=== PATIENT | female | born 1955 | race Caucasian/White ===

== ENCOUNTER 2023-10-08 09:44 | Emergency (ER) | payer OTHER, SELFPAY ==
[2023-10-08 09:45] VITALS: BP 173/53; PULSE 66; RESP 16; TEMP 36; O2SAT 97; BMI 29.7
--- NOTE | 2023-10-08 10:02 | RAD_ITS ---
STUDY: X-RAY - PELVIS REASON FOR EXAM: Female, 67 years old. Post op pain TECHNIQUE: One view of the pelvis was obtained. COMPARISON: None. FINDINGS: Moderate amount of fecal material is seen in the colon. There are multiple calcified phleboliths. Normal bilateral iliac wings, sacroiliac joints and visualized sacrum. Normal visualized bilateral superior and inferior pubic rami. Normal pubic symphysis. Normal ischial tuberosities. Normal visualized right femoral head. Normal right acetabulum. Normal right hip joint. The patient is status post left total hip replacement. RAD/Pelvis 1 or 2 Views IMPRESSION: Status post right total hip replacement. There is good alignment. Electronically Signed: Tian Augustine MD at 10:36 EST ,
--- NOTE | 2023-10-08 10:02 | RAD_ITS ---
STUDY: X-RAY - LEFT FEMUR REASON FOR STUDY: Female, 67 years old. Left lower extremity pain. Recent total hip replacement. TECHNIQUE: 4 view(s) of the femur. COMPARISON: None. FINDINGS: Patient is status post left total hip replacement. There is good alignment. Normal visualized soft tissue structure. RAD/Femur Min 2 Views IMPRESSION: Status post left total hip replacement. Electronically Signed: Tian Augustine MD at 10:35 EST ,
--- NOTE | 2023-10-08 10:02 | VDLE_ITS ---
Reason For Study: Pain LLE RIGHT LEFT CFV is compressible, spontaneous, phasic, GSV is normal. competent and demonstrates normal CFV is compressible, spontaneous, phasic, augmentation. competent, and demonstrates normal Procedure augmentation. This is a venous duplex using B-mode, color FV is compressible, spontaneous, phasic, flow and spectral Doppler. competent and demonstrates normal Exam performed portable in ED. augmentation. A preliminary report was called and/or faxed POP V is compressible, spontaneous, phasic, to Dr. Palmer. competent and demonstrates normal augmentation. T/P Trunk is compressible. PTV is compressible. LT PerV is compressible. VL/Venous Duplex US, Unilateral Interpretation Summary There is no evidence of left lower extremity deep vein thrombosis. Left great s aphenous vein appears patent and compressible segmentally. Normal flow patterns right common femoral vein Ordering Physician: Luis Carlos Palmer Performed By: Emerald Castrejon, TETE, RVT
--- NOTE | 2023-10-08 10:03 | EX.ED.DYSGE1 ---
HPI History of Present Illness Chief Complaint: Other, Pain/Inj Detail of Chief Complaint: Left hip pain Informant: patient Narrative Narrative: Patient presents to the emergency department with complaint of left hip pain. Patient states that she was walking with her walker yesterday when she felt a pop in her left hip and started having a difficult time bearing weight. Patient states that she had a hip replacement with Dr. Francisco 4 days ago. Patient also noticed some swelling to her left knee. Denies chest pain or shortness of breath. Patient states she called Dr. Francisco's office yesterday and she was told to come in and get evaluated and get an x-ray. Denies any fevers or chills or sweats. PFSH PFSH Allergy/AdvReac Type Severity Reaction Status Date / Time No Known Allergies Allergy Verified 10/08/23 11:45 Social History Smoking Status: Never smoker ROS ROS ED Review of Systems ROS Unobtainable: other Constitutional Constitutional ED: Reports lethargy; Denies chills, fever(s), sweats or weight loss Eyes Eyes: Denies blurry vision, change in vision or diplopia ENT ENT ED: Denies rhinorrhea or sore throat Cardiovascular Cardiovascular: Denies chest pain, orthopnea or racing heartbeat Respiratory/Chest Respiratory/Chest: Denies cough, dyspnea, dyspnea on exertion, orthopnea or sputum Gastrointestinal Gastrointestinal: Denies abdominal pain, diarrhea, nausea or vomiting Genitourinary Genitourinary ED: Denies dysuria, hematuria or urinary frequency Musculoskeletal Musculoskeletal: Reports other Details: Left hip pain, left knee swelling ; Denies arthralgias, back pain, myalgias or neck pain Integumentary Denies abscess, Abrasions or rash Neurologic Neurologic: Denies headache(s) or weakness Psychiatric Psychiatric: Denies anxiety, depression or suicidal thoughts Endocrine Endocrinology: Denies polydipsia, polyphagia or polyuria Hematologic/Lymphatic Hematologic/Lymphatic: Denies easy bleeding, easy bruising or lymphadenopathy Allergic/Immunologic Allergic/Immunologic ED: Denies mouth swelling, tongue swelling or urticaria EXAM Physical Exam Const Vital Signs: 10/08/23 09:45 Temperature 96.8 F L Temperature Source Temporal Pulse Rate 66 Respiratory Rate 16 Blood Pressure 173/53 H Blood Pressure Mean 93 Pulse Ox 97 Oxygen Delivery Method Room Air Positive well nourished and well developed General Appearance ED: well developed and NAD HEENT Reports TM's clear and moist mucous membranes normocephalic and atraumatic; Negative for trauma or tenderness Tympanic Membrane ED: Yes TM's clear Eyes PERRL and EOMs intact bilaterally General Eye ED: Negative for pale conjunctiva or scleral icterus Neck no lymphadenopathy, supple and no JVD General: Negative for tenderness Chest Wall inspection of chest normal and palpation of chest normal Chest: Negative for tenderness Resp normal respiratory effort and clear to auscultation bilaterally Effort and Inspection: Negative for respiratory distress or pain with movement Auscultation: Negative for rhonchi, wheezes or diminished lung sounds Cardio regular rate, regular rhythm, S1 normal heart sound, S2 normal heart sound and no murmurs Peripheral Pulses: pulses 2+ throughout GI normal to inspection, nondistended, normoactive bowel sounds, soft to palpation, non-tender, non-distended and no masses Back/Spine no CVA tenderness and no thoracic nor lumbar tenderness Extremity Extremity Narrative: Left leg-patient has tenderness palpation over the left hip. No shortening of the extremity noted. She does have edema to the left knee. She has some faint erythema to the medial aspect of the left thigh. Neurovascularly intact distally. General Extremety ED: Negative for edema General Extremity: Negative for edema Neuro oriented x3, CN's II-XII intact bilaterally, no sensory deficits noted and gait normal Sensorium / Orientation: awake, alert, oriented to person, oriented to place and oriented to time Motor Exam: strength 5/5 throughout and strength abnormal Psych mental status grossly normal Skin no rashes or lesions noted and no wounds MDM MDM MDM Narrative Medical decision making narrative: Presents with pain to left hip after total left hip replacement. Will obtain x-rays of the left hip and left femur. Will obtain a venous Doppler to rule out DVT. Venous duplex was negative for DVT. Patient had x-rays of the pelvis as well as the left hip and femur which were negative for fracture. I discussed case with Dr. Francisco who recommended patient keep her appointment with him. Clinically I do not see signs of infection. Patient comfortable with plan. Radiography Diagnostic Testing: Clinical Impression(s) from Imaging Studies Femur X-Ray 10/08/23 10:02 IMPRESSION: Status post left total hip replacement. Electronically Signed: Tian Augustine MD at 10:35 EST , Pelvis X-Ray 10/08/23 10:02 IMPRESSION: Status post right total hip replacement. There is good alignment. Electronically Signed: Tian Augustine MD at 10:36 EST , Venous Doppler Study 10/08/23 10:02 Interpretation Summary There is no evidence of left lower extremity deep vein thrombosis. Left great saphenous vein appears patent and compressible segmentally. Normal flow patterns right common femoral vein Ordering Physician: Luis Carlos Palmer Performed By: Emerald Castrejon, TETE, RVT Left hip and femur x-rays obtained views obtained which showed no evidence of fracture or dislocation. Radiology in agreement. 1 view pelvis x-ray obtained interpreted by myself as no evidence of fracture dislocation. Radiology in agreement. Discharge Plan Triage Chief Complaint: Other, Pain/Inj ED Provider: Luis Carlos Palmer Dx/Rx/DC Orders Clinical Impression: Post-op pain, Hip pain, left Instructions: ED Post Op Wound Check, Pain Primary Care Provider: Nancy Gannon NP Referrals: Herbie Francisco MD [Med Staff - Active Staff] - 5-7 Days Nancy Gannon NP, [employer]TE[employer]CE [facility]IST[facility] [Primary Care Provider] - Disposition Disposition: Home, Self Care Discharge Date/Time: 10/08/23 11:48
== END 2023-10-08 11:48 | disposition home or self-care (01) ==
PROVIDERS: Emergency Provider Emergency Medicine; PCP Nurse Practitioner Family; Visit Provider Emergency Medicine
DX: G89.18 Other acute postprocedural pain (principal); M25.552 Pain in left hip
CPT/HCPCS: 72170; 73552; 93971; 99282

== ENCOUNTER → 2023-12-26 | Outpatient (CLI) | payer OTHER, SELFPAY ==
[2023-12-26 15:03] LABS: Absolute Lymphocyte Count 2.95 X10^3/uL (0.83-4.51); Absolute Neutrophil Count 4.9 X10^3/uL (2.0-7.7); Basophil# 0.09 X10^3/uL; Eosinophil# 0.33 X10^3/uL; Eosinophils% 3.7 % (0-5); Hematocrit 37.8 % (37-47); Hemoglobin 12.9 g/dL (12.0-15.0); Lymphocyte # 2.95 X10^3/ul (0.83-4.51); Lymphocyte % 32.7 % (19-41); Mean Corp Hgb Conc 34.1 g/dL (32-36); Mean Corpuscular Hgb 30.3 pg (27.0-32.0); Mean Corpuscular Volume 88.7 fL (81-99); Mean Platelet Vol. 9.2 fl (6.2-12.0); Monocyte# 0.71 X10^3/uL; Monocyte% 7.9 % (0-10); NRBC Flagged by Analyzer 0 % (0-5); Neutrophil # 4.91 X10^3/uL (2.7-7.7); Neutrophil % 54.5 % (47-70); Platelet Count 359 K/mm3 (150-450); RBC Distribution Width CV 13.7 % (11.6-14.6); RBC Distribution Width SD 44.6 fl (35.1-43.9); Red Blood Count 4.26 M/mm3 (4.2-5.4)
[2023-12-26 15:09] LABS: Erythrocyte Sedimentation Rate 6 mm/hr (0-30)
[2023-12-26 15:31] LABS: CRP 3.63 mg/L (0.0-3.0)
== END | disposition home or self-care (01) ==
LOC: LAB 14:42
PROVIDERS: PCP Nurse Practitioner Family; Referring Provider Physician Assistant Surgical; Visit Provider Physician Assistant Surgical
DX: Z96.642 Presence of left artificial hip joint (principal)
CPT/HCPCS: 36415; 85025; 85652; 86140